=== PATIENT | female | born 1990 | race Caucasian/White ===

== ENCOUNTER 2024-08-05 00:28 | Emergency (ER) | payer OTHER ==
[~2024-08-05] VITALS: Ht 149.9 cm; Wt 77.5 kg
[2024-08-05 00:31] VITALS: BP 168/84; TEMP 98.4; O2SAT 98
[2024-08-05] MEDS ORDERED: CLIN150C17 PO (01:41)
[2024-08-05] MEDS: CETIRIZINE (ZyrTEC) 10 MG TAB PO ONE (01:50)
[2024-08-05] MEDS: FAMOTIDINE 20 MG TAB PO ONE (01:50)
== END 2024-08-05 02:20 | disposition home or self-care (01) ==
LOC: M ED 00:28
DX: L50.9 Urticaria, unspecified (principal)